=== PATIENT | female | born 1945 | race Caucasian/White ===

== ENCOUNTER 2017-04-19 16:06 | Emergency (ER) | payer BC ==
[~2017-04-19] VITALS: Ht 154.9 cm; Wt 49.1 kg
[2017-04-19] MEDS ORDERED: ALPRAZolam 0.25 MG TAB PO ONE (17:30)
[2017-04-19 17:40] LABS: MEAN CORPUSCULAR HEMOGLOBIN 28.4 pg (27.0-33.0); MEAN CORPUSCULAR HGB CONC 33.3 g/dl (32.0-36.5); MEAN CORPUSCULAR VOLUME 85.3 fl (80.0-96.0)
[2017-04-19 17:52] LABS: ANION GAP 9 MEQ/L (8-16); BLOOD UREA NITROGEN 11 MG/DL (7-18); CALCIUM LEVEL 9.2 MG/DL (8.8-10.2); CARBON DIOXIDE LEVEL 31 MEQ/L (21-32); CHLORIDE LEVEL 105 MEQ/L (98-107); CREATININE FOR GFR 0.84 MG/DL (0.55-1.02); GLOMERULAR FILTRATION RATE > 60.0 (>39); GLUCOSE, FASTING 105 MG/DL (83-110); PERCENT SATURATION 39.6 % (13.2-45.0); POTASSIUM SERUM 3.7 MEQ/L (3.5-5.1); SODIUM LEVEL 145 MEQ/L (136-145); TOTAL IRON BINDING CAPACITY 356 UG/DL (250-450)
--- NOTE | 2017-04-19 17:55 | REP ---
LEFT HAND COMPLETE: 04/19/2017. Clinical history: Contusion, trauma. Findings: There are no prior studies. The bones are severely demineralized. The distal radius and ulna without fracture or focal lesion. There are degenerative changes at the first CMC joint and articular margins of the multangular bones. The other carpal bones are grossly unremarkable. No carpal fractures visible. The other CMC joints show mild degenerative change. No evidence of a metacarpal fracture. Minimal degenerative changes at MTP and IP joints without erosion. No visible fractures. There is soft tissue swelling dorsal aspect of the hand and wrist. Impression: 1. Osteoporosis and degenerative changes with soft tissue swelling over the dorsal wrist and proximal hand. No definite fracture visible. Signed by Manny Ontiveros MD 04/20/2017 08:45 A
[2017-04-19 18:00] LABS: EOSINOPHILS 1 % (0-5); SCHISTOCYTES 1+
[2017-04-19 19:03] VITALS: BP 156/73
[2017-04-19] MEDS ORDERED: BACT800T5 PO (19:23)
[2017-04-19] MEDS ORDERED: BACTRIM 160MG/800MG DS TAB PO ONE (19:30)
== END 2017-04-19 19:56 | disposition home or self-care (01) ==
LOC: M ED 16:06
DX: N39.0 Urinary tract infection, site not specified (principal); B96.29 Other Escherichia coli [E. coli] as the cause of diseases classified elsewhere; F03.90 Unspecified dementia, unspecified severity, without behavioral disturbance, psychotic disturbance, mood disturbance, and anxiety; M81.0 Age-related osteoporosis without current pathological fracture; S60.222A Contusion of left hand, initial encounter; X58.XXXA Exposure to other specified factors, initial encounter; Y92.9 Unspecified place or not applicable; Y93.9 Activity, unspecified; Y99.8 Other external cause status; E78.00 Pure hypercholesterolemia, unspecified; K21.9 Gastro-esophageal reflux disease without esophagitis; Z86.73 Personal history of transient ischemic attack (TIA), and cerebral infarction without residual deficits; Z87.891 Personal history of nicotine dependence

== ENCOUNTER 2017-08-21 09:18 | Inpatient (IN) | payer BC ==
[~2017-08-21] VITALS: Ht 154.9 cm; Wt 45.5 kg
[~2017-08-21 09:18] MED LIST: BACT800T5 PO
[2017-08-21] MEDS ORDERED: VESI10TA2 (09:32)
[2017-08-21] MEDS ORDERED: FERR1TAB8 (09:32)
[2017-08-21] MEDS ORDERED: OMEP20CA3 PO (09:32)
[2017-08-21] MEDS ORDERED: ATOR1TAB19 PO (09:32)
[2017-08-21] MEDS ORDERED: ALPR0.25 PO (09:32)
[2017-08-21] MEDS ORDERED: FLUO20CA19 PO (09:32)
[2017-08-21] MEDS ORDERED: ASPI81TA85 PO (09:32)
[2017-08-21] MEDS ORDERED: VITA2000 PO (09:32)
[2017-08-21] MEDS ORDERED: ASCO25TA PO (09:32)
[2017-08-21] MEDS ORDERED: SENE8.6T PO (09:32)
--- NOTE | 2017-08-21 10:04 | REP ---
Brain CT without contrast: History: Altered mental status. No comparison imaging. Findings: Bone window settings show an intact bony calvarium. Visualized paranasal sinuses are clear. There is some vascular calcification in the distal internal carotid and distal vertebral arteries bilaterally. There is diffuse moderate cerebral atrophy and concordant ventricular enlargement. There is no evidence of intracranial hemorrhage. There are small vessel atherosclerotic low density areas in the periventricular white matter bilaterally. There is no evidence of infarction, extra-axial fluid collection, mass or midline shift. Impression: Diffuse moderate atrophy. Vascular calcification. No acute intracranial lesion seen. Signed by Cal Redman MD 08/21/2017 04:09 P
[2017-08-21 10:09] LABS: BASO % 0.2 % (0.0-1.0); EOS % 0.1 % (0.0-3.0); IMMATURE GRANULOCYTE % 0.3 % (0-0); LYMPH # 1.5 10^3/uL (1.5-4.5); LYMPH % 12.9 % (24.0-44.0); MEAN CORPUSCULAR HEMOGLOBIN 28.6 pg (27.0-33.0); MEAN CORPUSCULAR HGB CONC 32.6 g/dl (32.0-36.5); MEAN CORPUSCULAR VOLUME 87.7 fl (80.0-96.0); MONO # 0.9 10^3/uL (0.0-0.8); MONO % 7.7 % (0.0-5.0); NEUTROPHILS # 9.4 10^3/uL (1.8-7.7); NEUTROPHILS % 78.8 % (36.0-66.0); PLATELET COUNT, AUTOMATED 183 10^3/uL (150-450); RED CELL DISTRIBUTION WIDTH 14.5 % (11.5-14.5); WHITE BLOOD COUNT 11.9 10^3/uL (4.0-10.0)
[2017-08-21 10:39] LABS: ALBUMIN 3.2 GM/DL (3.2-5.2); ALBUMIN/GLOBULIN RATIO 0.74 (1.00-1.93); ALKALINE PHOSPHATASE 97 U/L (45-117); ALT/SGPT 318 U/L (12-78); ANION GAP 6 MEQ/L (8-16); AST/SGOT 292 U/L (7-37); BILIRUBIN,DIRECT 0.3 MG/DL (0.0-0.2); BILIRUBIN,TOTAL 0.9 MG/DL (0.2-1.0); BLOOD UREA NITROGEN 21 MG/DL (7-18); CALCIUM LEVEL 9.1 MG/DL (8.8-10.2); CARBON DIOXIDE LEVEL 30 MEQ/L (21-32); CHLORIDE LEVEL 103 MEQ/L (98-107); CREATININE FOR GFR 0.98 MG/DL (0.55-1.02); GLOMERULAR FILTRATION RATE 59.1 (>39); GLUCOSE, FASTING 131 MG/DL (83-110); POTASSIUM SERUM 3.3 MEQ/L (3.5-5.1); SODIUM LEVEL 139 MEQ/L (136-145); TOTAL PROTEIN 7.5 GM/DL (6.4-8.2)
[2017-08-21] MEDS ORDERED: ISOVUE-370 76% 100ML VIAL (Q9967) As Ordered ONE (10:59)
[2017-08-21] MEDS ORDERED: NS 1,000 ML IV SCH ×2 (11:45→14:00)
[2017-08-21] MEDS ORDERED: ALPRAZolam 0.25 MG TAB PO ONE (11:45)
--- NOTE | 2017-08-21 12:03 | REP ---
CT ABDOMEN AND PELVIS WITH IV CONTRAST: TECHNIQUE: Axial contrast enhanced images from the lung bases to the pubic symphysis using 100 mL Isovue 370 intravenous contrast material with multiplanar reformations. Patchy atelectasis or infiltrate is seen in each lung base. Liver, spleen, adrenals, and pancreas are unremarkable in appearance. A couple of tiny cysts are seen of the right kidney. There is a exophytic cyst in the upper pole of the left kidney measuring 2.5 cm in diameter. There is no hydronephrosis bilaterally. Moderate atherosclerotic calcifications are see of the abdominal aorta without aneurysm. There is no adenopathy. There is no free air or free fluid. There is no bowel wall thickening. No pelvic mass is seen. Urinary bladder is mildly distended and grossly unremarkable. I see no significant anterior abdominal wall defect. There are degenerative changes of the spine. There appears to be an old compression deformity of L2. IMPRESSION: Patchy bibasilar atelectasis/infiltrate. No acute abnormalities in the abdomen or pelvis. Signed by Jaime Rey MD 08/21/2017 05:57 P
[2017-08-21] MEDS ORDERED: ACETAMINOPHEN TAB 650MG DOSE (2X325MG) PO PRN (14:15)
[2017-08-21] MEDS ORDERED: ONDANSETRON 4MG/2ML VIAL (J2405) IV PRN (14:15)
[2017-08-21] MEDS ORDERED: OXYB10TA PO (14:49)
[2017-08-21] MEDS ORDERED: ASCO10003 PO (14:49)
[2017-08-21] MEDS ORDERED: FLUO40CA PO (14:49)
[2017-08-21] MEDS ORDERED: VITMTA PO (14:49)
[2017-08-21] MEDS ORDERED: RANI300T PO (14:49)
[2017-08-21] MEDS ORDERED: POTASSIUM CHLORIDE 10 MEQ SR TABLET PO ONE (15:00)
[2017-08-21] MEDS ORDERED: ALPRAZolam 0.25 MG TAB PO PRN (15:45)
[2017-08-21 15:50] VITALS: BP 174/80
--- NOTE | 2017-08-21 15:55 | REP ---
RIGHT UPPER QUADRANT ULTRASOUND: Real-time sonographic evaluation of the right upper quadrant performed. Gallbladder demonstrates no evidence of intraluminal sludge or calculi, wall thickening or pericholecystic fluid. There is no intrahepatic or extrahepatic biliary dilatation, the common bile duct measuring 3 mm in diameter. Liver and pancreas demonstrate homogeneous echotexture with no gross mass. Pancreas is not optimally seen due to overlying bowel gas. The right kidney demonstrates no hydronephrosis or nephrolithiasis with normal size at 9.1 cm in length. There is no free fluid seen in the right upper quadrant. IMPRESSION: Essentially negative right upper quadrant ultrasound. Signed by Jaime Rey MD 08/21/2017 05:59 P
[2017-08-21] MEDS ORDERED: POTASSIUM CHLORIDE 10% LIQ 20 MEQ/15 ML UDC PO ONE (16:00)
[2017-08-21] MEDS: FLUoxetine 20 MG CAP PO SCH (16:41)
[2017-08-21] MEDS: ENOXAPARIN 30 MG/0.3 ML SYR (J1650) SC SCH (16:41)
[2017-08-21] MEDS: ATORVASTATIN 10 MG TAB PO SCH (16:42)
[2017-08-21] MEDS: ASPIRIN 81 MG ENTERIC TAB PO SCH (16:42)
[2017-08-21] MEDS: OMEPRAZOLE 20 MG CAP PO SCH (16:42)
[2017-08-21] MEDS: ALPRAZolam 0.25 MG TAB PO SCH ×3 (16:42→22:10)
[2017-08-21] MEDS ORDERED: AZITHROMYCIN INJ 500 MG, VIAL MATE ADAPTER 1 EACH in D5W 250 ML IV SCH (17:00)
[2017-08-21] MEDS: LACTOBACILLUS ACIDOPHILUS CAP (BACID) PO SCH (17:41)
[2017-08-21] MEDS ORDERED: CEFTRIAXONE SOD 2 GM in APPROPRIATE DILUENT 1 EA IV SCH (18:00)
[2017-08-21] MEDS ORDERED: ROCEPHIN (cefTRIAXone) 100MG/ML SYR BULK (J0696) IV SCH (18:00)
--- NOTE | 2017-08-21 19:09 | HPEPDOC ---
General Date of Admission Aug 21, 2017 at 14:13 Attending Physician: ZULEIMA WILLIAM MD Chief Complaint The patient is a 72-year-old female admitted with a reason for visit of Altered Mental Status. Source: Family Exam Limitations: Physical impairment, Dementia, Hard of hearing, Garbled speech Timing/Duration: Day(s) (2) Severity: Moderate Associated Symptoms: Cough, Fever, Loss of appetite, Vomiting History of Present Illness Patient is 72-year-old female with a past medical history of Parkinson's and dementia. Patient is nonverbal and history was provided primarily by her and daughter. According patient's patient, was last seen at baseline on Monday. She was talking, responding to questions, playing cards, and being herself. However on Monday she spontaneously vomited her food, and started this decline, which ended up in her present state. She became very lethargic on Monday. And on Monday patient had poor appetite, developed a mild cough that has since resolved, and she began to have a decrease response to the family. He also had a fever on Monday. This morning patient woke up and she was moaning in pain. Her family attempted to ask her what is going on however she would not respond. She just laid there and moaned in pain. This prompted the family to bring her to the ED. Her family states that this is far from her baseline. She is normally very responsive, although with her advanced dementia she is unaware of what is going on around her but she is responsive and engaging with rest of her family. She currently lives with her and she needs assistance with all of her daily activities. Patient has a past history of UTI in the past. She also previously had a tick bite that was brought in by one of the family cats. Family denies any recent change in medication, denies any recent head trauma, denies any falls , denies any recent travels, denies tick bites, denies any recent infections, denies seizures. Denies sick contact. Denies diarrhea, denies any bleeding or bruising .The family does admit to weakness however patient does have baseline weakness from her Parkinson. Family confirms that pt has had both pneumonia vaccine, but she did not receive the flu vaccine this year. Home Medications Scheduled (Senexon-S 8.6-50 mg) 1 Tab Tab, 1 TAB PO DAILY, (Reported) Ascorbic Acid (Ascorbic Acid) 1,000 Mg Tab, 1,000 MG PO BID, (Reported) Aspirin (Aspir-81) 81 Mg Tab, 81 MG PO DAILY, (Reported) Atorvastatin Calcium (Atorvastatin Calcium) 10 Mg Tab, 10 MG PO DAILY, (Reported ) Fluoxetine Hcl (Fluoxetine HCl) 20 Mg Cap, 20 MG PO DAILY, (Reported) 60MG TOTAL DAILY Fluoxetine Hcl (Fluoxetine HCl) 40 Mg Cap, 40 MG PO DAILY, (Reported) 60MG TOTAL DAILY Multivitamins *[facility] STOCKED* (Thera M Plus *[facility] STOCKED*) 1 Tab Tab, 1 TAB PO DAILY, (Reported) Omeprazole (Omeprazole) 20 Mg Cap, 20 MG PO DAILY, (Reported) Oxybutynin Chloride (Oxybutynin Chloride ER) 10 Mg Tab, 10 MG PO QHS, (Reported) Ranitidine HCl (Ranitidine HCl) 300 Mg Tab, 1 TAB PO DAILY, (Reported) Scheduled PRN Alprazolam (Alprazolam) 0.25 Mg Tab, 0.25 MG PO TID PRN for ANXIETY, (Reported) Allergies Coded Allergies: No Known Allergies (Unverified , 04/19/17) Past Medical History Medical History Parkinson's, dementia Surgical History Hysterectomy Family History All 3 of her sisters had lung cancer by the 60s Social History * Smoker: former Smoker Alcohol: Denies Drugs: denies Recent Travel/Sick Contacts: Denies: Recent travel, Recent sick contacts Pets in the home: Cat(s) Review of Systems Other systems She was nonverbal and was not able to participate in review of systems Physical Examination General Exam: Positive: Mild Distress, Negative: Cooperative (patient was nonverbal. However she did look at me when her name was stated out loud) Eye Exam: Positive: PERRLA ENT Exam: Negative: Mucous membr. moist/pink (oral mucosa appears dry) Neck Exam: Negative: JVD, +2 carotid pulse wo bruit Chest Exam: Positive: Diminished, Negative: Rales, Rhonchi, Wheezing Heart Exam: Positive: Rate Normal, Normal S1, Normal S2, Negative: Bradycardic, Regular Rhythm, Irregular Rhythm Abdomen Exam: Positive: Soft, Tenderness, Negative: Hepatospenomegaly Extremity Exam: Positive: Normal pulses, Swelling, Negative: Edema, Tenderness Skin Exam: Positive: Nl turgor and temperature, Negative: Rash, Breakdown Neuro Exam: Positive: Normal Tone, Negative: Strength at 5/5 X4 ext (patient appears very weak) Vital Signs Vital Signs Date Time Temp Pulse Resp B/P (MAP) Pulse Ox O2 Delivery O2 Flow Rate FiO2 08/21/17 15:50 100.6 83 16 174/80 (111) 92 Room Air Laboratory Data Labs 24H Laboratory Tests 2 08/21/17 09:56: Bedside Glucose (Misc Panel) 123H 08/21/17 09:59: Immature Granulocyte % (Auto) 0.3H, White Blood Count 11.9H, Red Blood Count 4.65, Hemoglobin 13.3, Hematocrit 40.8, Mean Corpuscular Volume 87.7, Mean Corpuscular Hemoglobin 28.6, Mean Corpuscular Hemoglobin Concent 32.6, Red Cell Distribution Width 14.5, Platelet Count 183, Neutrophils (%) (Auto) 78.8H, Lymphocytes (%) (Auto) 12.9L, Monocytes (%) (Auto) 7.7H, Eosinophils (%) (Auto) 0.1, Basophils (%) (Auto) 0.2, Neutrophils # (Auto) 9.4H, Lymphocytes # (Auto) 1.5, Monocytes # (Auto) 0.9H, Eosinophils # (Auto) 0.0, Basophils # (Auto) 0.0, Immature Granulocyte # (Auto) 0.0, Nucleated Red Blood Cells % (auto) 0.0, Anion Gap 6L, Glomerular Filtration Rate 59.1, Calcium Level 9.1, Aspartate Amino Transf (AST/SGOT) 292H, Alanine Aminotransferase (ALT/SGPT) 318H, Alkaline Phosphatase 97, Total Bilirubin 0.9, Direct Bilirubin 0.3H, Ammonia 17 , Total Creatine Kinase 128, Creatine Kinase MB 2.0, Creatine Kinase MB Relative Index 1.56, Troponin I 0.02, Total Protein 7.5, Albumin 3.2, Albumin/ Globulin Ratio 0.74L, Lipase 71L, Thyroid Stimulating Hormone (TSH) 0.709 08/21/17 10:38: Urine Appearance HAZY, Urine Color YELLOW, Urine pH 5.0, Urine Specific [place] 1.024, Urine Protein 2+H, Urine Glucose (UA) NEGATIVE, Urine Ketones NEGATIVE, Urine Urobilinogen 4.0H, Urine Bilirubin NEGATIVE, Urine Leukocyte Esterase TRACEH, Urine Blood 2+H, Urine Nitrite NEGATIVE, Urine WBC (Auto) 13H, Urine RBC (Auto) 15H, Urine Hyaline Casts (Auto) 0, Urine Bacteria (Auto) 1+H, Urine Squamous Epithelial Cells 1, Urine Mucus (Auto) SMALL, Urine Sperm (Auto) 08/21/17 12:59: Lactic Acid Level 1.3 CBC/BMP Laboratory Tests 08/21/17 09:59 Red Blood Count 4.65, Mean Corpuscular Volume 87.7, Mean Corpuscular Hemoglobin 28.6, Mean Corpuscular Hemoglobin Concent 32.6, Red Cell Distribution Width 14.5 , Neutrophils (%) (Auto) 78.8 H, Lymphocytes (%) (Auto) 12.9 L, Monocytes (%) ( Auto) 7.7 H, Eosinophils (%) (Auto) 0.1, Basophils (%) (Auto) 0.2, Neutrophils # (Auto) 9.4 H, Lymphocytes # (Auto) 1.5, Monocytes # (Auto) 0.9 H, Eosinophils # (Auto) 0.0, Basophils # (Auto) 0.0 Microbiology Microbiology 08/21/17 Blood Culture, Received Pending 08/21/17 Blood Culture, Received Pending 08/21/17 MRSA Screen, Received Pending 08/21/17 Respiratory Virus Panel (PCR) (ERIKA), Received Pending Assessment/Plan Delirium: Secondary to infection -MRSA screen is pending, -Respiratory panel is pending -Blood cultures pending -Sputum culture pending Delirium, secondary to electrolyte imbalance: Unli -Glucose is 131 -Patient is hypokalemic, Replacement ordered -Ammonia 17 -Lipase is 71 -TSH is 0.709 -LFT within normal limits Delirium secondary to other disease process -DNA has been ordered -Hepatitis panel ordered -lyme disease screen ordered Crainal Injury -Diffuse moderate atrophy. Vascular calcification. No acute intracranial lesion seen. -MRI consider MRI UTI -Patient has been started on 2 g Rocephin Dementia -Continue home meds Parkinson -stable PT evaluation order Patient will be admitted to the inpatient unit under the care of Dr. Issa Plan / VTE VTE Prophylaxis Ordered?: Yes JULIAN GONZALEZ DO Aug 21, 2017 19:09
--- NOTE | 2017-08-21 19:59 | REP ---
Portable chest x-ray: Single view. History: Aspiration pneumonia. Findings: There is a fairly large dense infiltrate in the right base medially compatible with aspiration pneumonia. Remaining lung joel are clear. Heart is not enlarged. The aorta is calcific and tortuous. Pulmonary vasculature is not increased. Impression: Fairly large infiltrate in the right base medially consistent with right lower lobe pneumonia, possibly aspiration pneumonia. Signed by Cal Redman MD 08/21/2017 09:45 P
[2017-08-21] MEDS: ASCORBIC ACID 500 MG TAB PO SCH ×2 (21:00→22:10)
[2017-08-21] MEDS: oxyBUTYnin *DITROPAN XL* 5 MG TABCR PO SCH ×2 (21:00→22:10)
[2017-08-21 22:00] VITALS: BP 98/62
[2017-08-21] MEDS: metroNIDAZOLE 500 MG in APPROPRIATE DILUENT 1 EA IV SCH (23:14)
[2017-08-22] VITALS: BP 106/60
[2017-08-22 06:00] VITALS: BP 145/62
[2017-08-22] MEDS: metroNIDAZOLE 500 MG in APPROPRIATE DILUENT 1 EA IV SCH (06:24)
[2017-08-22 06:28] LABS: BASO % 0.3 % (0.0-1.0); EOS # 0.1 10^3/uL (0.0-0.50); EOS % 0.6 % (0.0-3.0); IMMATURE GRANULOCYTE % 0.5 % (0-0); LYMPH # 1.4 10^3/uL (1.5-4.5); LYMPH % 13.5 % (24.0-44.0); MEAN CORPUSCULAR HEMOGLOBIN 28.2 pg (27.0-33.0); MEAN CORPUSCULAR HGB CONC 32.2 g/dl (32.0-36.5); MEAN CORPUSCULAR VOLUME 87.6 fl (80.0-96.0); MONO # 0.8 10^3/uL (0.0-0.8); MONO % 7.6 % (0.0-5.0); NEUTROPHILS # 8.2 10^3/uL (1.8-7.7); NEUTROPHILS % 77.5 % (36.0-66.0); PLATELET COUNT, AUTOMATED 141 10^3/uL (150-450); RED CELL DISTRIBUTION WIDTH 14.5 % (11.5-14.5); WHITE BLOOD COUNT 10.6 10^3/uL (4.0-10.0)
[2017-08-22 06:50] LABS: ALBUMIN 2.5 GM/DL (3.2-5.2); ALBUMIN/GLOBULIN RATIO 0.71 (1.00-1.93); ALKALINE PHOSPHATASE 78 U/L (45-117); ALT/SGPT 207 U/L (12-78); ANION GAP 8 MEQ/L (8-16); AST/SGOT 148 U/L (7-37); BILIRUBIN,TOTAL 0.5 MG/DL (0.2-1.0); BLOOD UREA NITROGEN 18 MG/DL (7-18); CALCIUM LEVEL 8.1 MG/DL (8.8-10.2); CARBON DIOXIDE LEVEL 25 MEQ/L (21-32); CHLORIDE LEVEL 110 MEQ/L (98-107); CREATININE FOR GFR 0.77 MG/DL (0.55-1.02); GLOMERULAR FILTRATION RATE > 60.0 (>39); GLUCOSE, FASTING 94 MG/DL (83-110); POTASSIUM SERUM 3.4 MEQ/L (3.5-5.1); SODIUM LEVEL 143 MEQ/L (136-145)
[2017-08-22] MEDS: LACTOBACILLUS ACIDOPHILUS CAP (BACID) PO SCH ×2 (08:33→17:49)
[2017-08-22] MEDS: ASCORBIC ACID 500 MG TAB PO SCH ×2 (08:34→20:26)
[2017-08-22] MEDS: FLUoxetine 20 MG CAP PO SCH (08:34)
[2017-08-22] MEDS: OMEPRAZOLE 20 MG CAP PO SCH (08:34)
[2017-08-22] MEDS: ALPRAZolam 0.25 MG TAB PO SCH ×4 (08:34→20:25)
[2017-08-22] MEDS: SENOKOT S TAB PO SCH (08:34)
[2017-08-22] MEDS: ASPIRIN 81 MG ENTERIC TAB PO SCH (08:34)
[2017-08-22] MEDS: MULTIVITAMINS/MINERALS THERAP 1 TAB PO SCH (08:34)
[2017-08-22] MEDS: ATORVASTATIN 10 MG TAB PO SCH (08:34)
[2017-08-22] MEDS: LevoFLOXacin IV 500 MG in APPROPRIATE DILUENT 1 EA IV SCH (08:35)
[2017-08-22] MEDS: ENOXAPARIN 30 MG/0.3 ML SYR (J1650) SC SCH (08:35)
--- NOTE | 2017-08-22 08:38 | ECGEPIP ---
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
[2017-08-22] MEDS ORDERED: FLUoxetine 20 MG CAP PO SCH (09:00)
[2017-08-22] MEDS ORDERED: POTASSIUM CHLORIDE 10% LIQ 20 MEQ/15 ML UDC PO ONE (09:15)
[2017-08-22 09:19] LABS: MAGNESIUM LEVEL 1.9 MG/DL (1.8-2.4)
--- NOTE | 2017-08-22 09:27 | IPN ---
DATE: 08/22/2017 SUBJECTIVE: Patient tells me she feels all right this morning. She is able to say good morning and greets me as I enter the room. She is accompanied by her . The patient does not appear to be in any acute distress. The tells me the patient is doing significantly better. She is much more awake, talking and interactive, which she was unable to do yesterday. OBJECTIVE: Vital Signs: Temperature with T-max 100.6. Temperature 97.4. Pulse 74. Respiratory rate 18. Blood pressure 145/62. Oxygen saturation 94% on room air. General: She is a frail, elderly, female laying in bed. She does not appear to be in acute distress. HEENT: She has dry mucous membranes. No elevation of jugular venous pulse (JVP). Cranial nerves appear to be grossly intact, however, she does not cooperate with cranial nerve testing extensively. She is awake, alert. She is not oriented. Cardiovascular Exam: S1, S2, regular. Respiratory Exam: Actually quite clear. Diminished breath sounds at the bases bilaterally. Abdominal exam is benign. Extremities: No clubbing, cyanosis or edema. LABORATORY STUDIES: WBC 10.6 down from 11.9. Hemoglobin 11.1 from 13.3. Platelet count 141 down from 183. Chemistry panel with sodium 143, potassium 3.4, chloride 110, bicarbonate 25, BUN 18, creatinine 0.7. Lactic acid yesterday was 1.3. AST and ALT are down trending to 92 from 148 and from 318 to 207. Ammonia level is within normal limits. TSH is within normal limits. Lipase is unremarkable. IRINA is pending. Hepatitis panel and Lyme screen are both pending. MICROBIOLOGY: Blood cultures pending. Respiratory PCR panel is negative. Methicillin-resistant Staphylococcus aureus (MRSA) screen is negative. The patient had a chest x-ray yesterday that revealed fairly large infiltrate in the right base medially consistent with right lower lobe pneumonia, possibly aspiration pneumonia. The patient had a gallbladder ultrasound that was essentially a negative right upper quadrant ultrasound with no evidence of hepatic cirrhosis. She also had a CT scan of the abdomen and pelvis which revealed patchy bibasilar atelectasis/infiltrate. No acute abnormalities in the abdomen or pelvis. She did have a CT scan of the head which revealed diffuse moderate atrophy, vascular calcification, no acute intracranial lesion. ASSESSMENT AND PLAN: This is a 72-year-old female who presented with acute encephalopathy. PROBLEMS: 1. Metabolic encephalopathy likely related to aspiration pneumonia. The patient is not very functional at her baseline. Given her history, it is likely related to aspiration pneumonia. It does appear to be improving today. 2. Aspiration pneumonia. The patient was initially on ceftriaxone and azithromycin as well as metronidazole added. In order to simply her regimen, I will transition her to levofloxacin 500 mg IV daily. She does appear to be improving at this time. I have placed a speech therapy evaluation. This should adequately cover her for aspiration pneumonia. The patient is normally on Xanax as needed and at bedtime. I have placed a holding parameter - hold for sedation, at this time. 3. Hepatitis. The etiology remains unclear. It does appear to be improving. We do not have any old laboratory studies for her and I cannot determine the severity. As well, it appears to be a rather acute insult given that her LFTs returned to normal and she does not have any radiographic findings of cirrhosis. She does not have any abdominal pain. IRINA is currently pending as well as a hepatitis panel and a Lyme screen. 4. Hypokalemia. Will provide her with supplementation as well as check a magnesium level. 5. Anemia, asymptomatic. Likely dilutional drop as all of her dropped with fluids. 6. Overactive bladder. Continue with oxybutynin. 7. Dyslipidemia. She is on statin and aspirin. 8. Mood disorder. She is on Prozac. 9. Gastroesophageal reflux disease. She is on omeprazole. DISPOSITION: Will continue with antibiotics. At this time, she does appear to be improving. I suspect she may be more appropriate to participate with physical therapy and in the coming days will improve as she is adequately treated. She is improving at this time.
[2017-08-22 09:52] LABS: INR 1.17
[2017-08-22 14:00] VITALS: BP 134/60
[2017-08-22] MEDS: oxyBUTYnin *DITROPAN XL* 5 MG TABCR PO SCH (20:26)
[2017-08-22 22:00] VITALS: BP 139/66
[2017-08-23 06:00] VITALS: BP 151/72
[2017-08-23 06:22] LABS: BASO % 0.2 % (0.0-1.0); EOS # 0.1 10^3/uL (0.0-0.50); EOS % 1.1 % (0.0-3.0); IMMATURE GRANULOCYTE % 0.4 % (0-0); LYMPH # 1.8 10^3/uL (1.5-4.5); LYMPH % 19.3 % (24.0-44.0); MEAN CORPUSCULAR HEMOGLOBIN 28.1 pg (27.0-33.0); MEAN CORPUSCULAR HGB CONC 33.3 g/dl (32.0-36.5); MEAN CORPUSCULAR VOLUME 84.3 fl (80.0-96.0); MONO # 0.8 10^3/uL (0.0-0.8); MONO % 8.8 % (0.0-5.0); NEUTROPHILS # 6.6 10^3/uL (1.8-7.7); NEUTROPHILS % 70.2 % (36.0-66.0); PLATELET COUNT, AUTOMATED 166 10^3/uL (150-450); RED CELL DISTRIBUTION WIDTH 14.3 % (11.5-14.5); WHITE BLOOD COUNT 9.4 10^3/uL (4.0-10.0)
[2017-08-23 06:45] LABS: ALBUMIN 2.5 GM/DL (3.2-5.2); ALBUMIN/GLOBULIN RATIO 0.66 (1.00-1.93); ALKALINE PHOSPHATASE 84 U/L (45-117); ALT/SGPT 149 U/L (12-78); ANION GAP 8 MEQ/L (8-16); AST/SGOT 81 U/L (7-37); BILIRUBIN,TOTAL 0.6 MG/DL (0.2-1.0); BLOOD UREA NITROGEN 13 MG/DL (7-18); CALCIUM LEVEL 8.1 MG/DL (8.8-10.2); CARBON DIOXIDE LEVEL 24 MEQ/L (21-32); CHLORIDE LEVEL 107 MEQ/L (98-107); CREATININE FOR GFR 0.68 MG/DL (0.55-1.02); GLOMERULAR FILTRATION RATE > 60.0 (>39); GLUCOSE, FASTING 104 MG/DL (83-110); POTASSIUM SERUM 3.7 MEQ/L (3.5-5.1); SODIUM LEVEL 139 MEQ/L (136-145); TOTAL PROTEIN 6.3 GM/DL (6.4-8.2)
[2017-08-23] MEDS ORDERED: INFLUENZA VIRUS VACCINE HIGH DOSE 0.5 ML SYRINGE (90662) IM ONE (09:00)
[2017-08-23] MEDS: ASPIRIN 81 MG ENTERIC TAB PO SCH (09:41)
[2017-08-23] MEDS: MULTIVITAMINS/MINERALS THERAP 1 TAB PO SCH (09:41)
[2017-08-23] MEDS: ALPRAZolam 0.25 MG TAB PO SCH ×4 (09:41→21:05)
[2017-08-23] MEDS: LACTOBACILLUS ACIDOPHILUS CAP (BACID) PO SCH ×2 (09:41→18:09)
[2017-08-23] MEDS: ATORVASTATIN 10 MG TAB PO SCH (09:43)
[2017-08-23] MEDS: SENOKOT S TAB PO SCH (09:43)
[2017-08-23] MEDS: OMEPRAZOLE 20 MG CAP PO SCH (09:43)
[2017-08-23] MEDS: ASCORBIC ACID 500 MG TAB PO SCH ×2 (09:44→21:04)
[2017-08-23] MEDS: ENOXAPARIN 30 MG/0.3 ML SYR (J1650) SC SCH (09:44)
[2017-08-23] MEDS: FLUoxetine 20 MG CAP PO SCH (09:44)
[2017-08-23] MEDS: LevoFLOXacin IV 500 MG in APPROPRIATE DILUENT 1 EA IV SCH (09:50)
--- NOTE | 2017-08-23 13:05 | IPNPDOC ---
Text Note Date of Service The patient was seen on 08/23/17. NOTE Subjective: Patient is a 72 year old female with a PMHx of Parkinson's, Dementia , DLP, Depression, Overactive bladder, GERD who presented to the ER after she had a change in her mental status. She was noted to have a vomiting episode and was began to have a decline from that point. Patient was admitted for an aspiration pneumonia and started on antibiotics. Patient was seen and examined at the bedside. Her caregiver was present at the bedside. I was able to have the patient respond to questions; however she was unable to verbalize anything comprehendible. She remains awake and alert. Although caregiver has noted that she is still not as energetic as before. Speech therapy has recommended adjusting her diet again. Objective: Vitals (See below) General: Lying in bed, no acute distress, comfortable, Awake + Alert HEENT: NC, AT CVS: RRR, +S1S2 Lungs: Poor inspiratory effort, -w/r/r Abdomen: Soft, ND, NT Extremities: - Edema, - Calf tenderness Assessment and plan: Acute Metabolic Encephalopathy - likely 2/2 aspiration pneumonia - Noted to have worsening of her mental status after she had a vomiting episode at home - She does not appear to be at baseline level of functioning at this time - CT Head 08/21: Diffuse moderate atrophy, vascular calcification, no acute intracranial lesion seen - Will c/w treatment of pneumonia until she improves - Will start PT / OT in next few days Aspiration pneumonia - likely a result of progressive dementia - Remains afebrile, hemodynamically stable - WBC improving, No lactic acidosis - Blood cultures 08/21: Negative at 24 hours, Respiratory panel: negative; MRSA screen: negative - CXR 08/21: fairly large infiltrate at R base medially; RLL pneumonia - Abdominal US 08/21: Essentially negative right upper quadrant - CT ab/pel 08/21: Patchy bibasilar atelectasis/infiltrate, no acute abnormalities - c/w Levofloxacin (Day #2) Aspiration - c/w Speech therapy - c/w modified diet as per recommendations Elevated AST/ALT - hepatitis panel negative - Imaging noted above; negative - continues to improve - IRINA pending s/p Hypokalemia Normocytic anemia - Mild drop, likely 2/2 IV fluids - will continue to monitor Overactive bladder - c/w Oxybutynin DLP - c/w ASA and Atorvastatin Depression - c/w Fluoxetine GERD - c/w Omeprazole DVT prophylaxis - c/w Lovenox VS,Fishbone, I+O VS, Fishbone, I+O Laboratory Tests 08/23/17 05:35 Calcium Level 8.1 L, Aspartate Amino Transf (AST/SGOT) 81 H, Alanine Aminotransferase (ALT/SGPT) 149 H, Alkaline Phosphatase 84, Total Bilirubin 0.6 , Total Protein 6.3 L, Albumin 2.5 L 08/23/17 05:36 Red Blood Count 4.02, Mean Corpuscular Volume 84.3, Mean Corpuscular Hemoglobin 28.1, Mean Corpuscular Hemoglobin Concent 33.3, Red Cell Distribution Width 14.3 , Neutrophils (%) (Auto) 70.2 H, Lymphocytes (%) (Auto) 19.3 L, Monocytes (%) ( Auto) 8.8 H, Eosinophils (%) (Auto) 1.1, Basophils (%) (Auto) 0.2, Neutrophils # (Auto) 6.6, Lymphocytes # (Auto) 1.8, Monocytes # (Auto) 0.8, Eosinophils # ( Auto) 0.1, Basophils # (Auto) 0.0 Vital Signs Date Time Temp Pulse Resp B/P (MAP) Pulse Ox O2 Delivery O2 Flow Rate FiO2 08/23/17 06:00 98.6 88 17 151/72 (98) 93 Room Air I&O- Last 24 Hours up to 6 AM 08/23/17 06:00 Intake Total 860 ml Output Total 0 ml Balance 860 ml HANANE GONZALEZ MD Aug 23, 2017 13:05
[2017-08-23 14:00] VITALS: BP 138/80
[2017-08-23] MEDS: oxyBUTYnin *DITROPAN XL* 5 MG TABCR PO SCH (21:06)
[2017-08-23 22:00] VITALS: BP 157/75
[2017-08-24 00:07] LABS: Lyme Disease IgG/IgM Antibodie <0.91 ISR (0.00-0.90); Lyme Disease IgM Ab Quantitati <0.80 index (0.00-0.79)
[2017-08-24 06:00] VITALS: BP 156/63
[2017-08-24 06:55] LABS: BASO % 0.3 % (0.0-1.0); EOS # 0.1 10^3/uL (0.0-0.50); EOS % 1.4 % (0.0-3.0); IMMATURE GRANULOCYTE % 0.4 % (0-0); LYMPH # 1.6 10^3/uL (1.5-4.5); LYMPH % 20.5 % (24.0-44.0); MEAN CORPUSCULAR HEMOGLOBIN 28.4 pg (27.0-33.0); MEAN CORPUSCULAR HGB CONC 33.1 g/dl (32.0-36.5); MEAN CORPUSCULAR VOLUME 85.7 fl (80.0-96.0); MONO # 0.7 10^3/uL (0.0-0.8); MONO % 8.8 % (0.0-5.0); NEUTROPHILS # 5.3 10^3/uL (1.8-7.7); NEUTROPHILS % 68.6 % (36.0-66.0); PLATELET COUNT, AUTOMATED 189 10^3/uL (150-450); RED CELL DISTRIBUTION WIDTH 14.1 % (11.5-14.5); WHITE BLOOD COUNT 7.7 10^3/uL (4.0-10.0)
[2017-08-24 07:09] LABS: ALBUMIN 2.5 GM/DL (3.2-5.2); ALBUMIN/GLOBULIN RATIO 0.74 (1.00-1.93); ALKALINE PHOSPHATASE 79 U/L (45-117); ALT/SGPT 116 U/L (12-78); ANION GAP 8 MEQ/L (8-16); AST/SGOT 59 U/L (7-37); BILIRUBIN,TOTAL 0.6 MG/DL (0.2-1.0); BLOOD UREA NITROGEN 14 MG/DL (7-18); CARBON DIOXIDE LEVEL 26 MEQ/L (21-32); CHLORIDE LEVEL 105 MEQ/L (98-107); CREATININE FOR GFR 0.74 MG/DL (0.55-1.02); GLOMERULAR FILTRATION RATE > 60.0 (>39); GLUCOSE, FASTING 90 MG/DL (83-110); POTASSIUM SERUM 3.6 MEQ/L (3.5-5.1); SODIUM LEVEL 139 MEQ/L (136-145); TOTAL PROTEIN 5.9 GM/DL (6.4-8.2)
[2017-08-24] MEDS: LevoFLOXacin IV 500 MG in APPROPRIATE DILUENT 1 EA IV SCH (09:39)
[2017-08-24] MEDS: LACTOBACILLUS ACIDOPHILUS CAP (BACID) PO SCH ×2 (09:39→18:13)
[2017-08-24] MEDS: ALPRAZolam 0.25 MG TAB PO SCH ×4 (09:39→21:17)
[2017-08-24] MEDS: MULTIVITAMINS/MINERALS THERAP 1 TAB PO SCH (09:40)
[2017-08-24] MEDS: ASPIRIN 81 MG ENTERIC TAB PO SCH (09:40)
[2017-08-24] MEDS: ENOXAPARIN 30 MG/0.3 ML SYR (J1650) SC SCH (09:40)
[2017-08-24] MEDS: SENOKOT S TAB PO SCH (09:40)
[2017-08-24] MEDS: OMEPRAZOLE 20 MG CAP PO SCH (09:40)
[2017-08-24] MEDS: ATORVASTATIN 10 MG TAB PO SCH (09:40)
[2017-08-24] MEDS: ASCORBIC ACID 500 MG TAB PO SCH ×2 (09:40→21:17)
[2017-08-24] MEDS: FLUoxetine 20 MG CAP PO SCH (09:41)
--- NOTE | 2017-08-24 11:44 | IPNPDOC ---
Text Note Date of Service The patient was seen on 08/24/17. NOTE Subjective: Patient is a 72 year old female with a PMHx of Parkinson's, Dementia , DLP, Depression, Overactive bladder, GERD who presented to the ER after she had a change in her mental status. She was noted to have a vomiting episode and was began to have a decline from that point. Patient was admitted for an aspiration pneumonia and started on antibiotics. Patient was seen and examined at the bedside. She is more awake and alert. Is able to understand questions and can answer very softly. Another caregiver is present at the bedside. She notes that this is her baseline level of function. Physical therapy will start today. Objective: Vitals (See below) General: Lying in bed, no acute distress, comfortable, Awake + Alert HEENT: NC, AT CVS: RRR, +S1S2 Lungs: Poor inspiratory effort, -w/r/r Abdomen: Soft, ND, NT Extremities: - Edema, - Calf tenderness Assessment and plan: s/p Acute Metabolic Encephalopathy - likely 2/2 aspiration pneumonia - Appears to be at baseline level of functioning as per caregiver in room - CT Head 08/21: Diffuse moderate atrophy, vascular calcification, no acute intracranial lesion seen - c/w treatment of pneumonia - Will start PT today and evaluate progression; has 24 hour care at home Aspiration pneumonia - likely a result of progressive dementia - Remains afebrile, hemodynamically stable - WBC count continues to improve, No lactic acidosis - Blood cultures 08/21: Negative at 24 hours, Respiratory panel: negative; MRSA screen: negative - CXR 08/21: fairly large infiltrate at R base medially; RLL pneumonia - Abdominal US 08/21: Essentially negative right upper quadrant - CT ab/pel 08/21: Patchy bibasilar atelectasis/infiltrate, no acute abnormalities - c/w Levofloxacin (Day #3) Aspiration - c/w Speech therapy - c/w modified diet as per recommendations Elevated AST/ALT - Hepatitis panel negative; IRINA negative; Lyme negative - Imaging noted above; negative - continues to trend down s/p Hypokalemia Normocytic anemia - Mild drop, likely 2/2 IV fluids - will continue to monitor Overactive bladder - c/w Oxybutynin DLP - c/w ASA and Atorvastatin Depression - c/w Fluoxetine GERD - c/w Omeprazole DVT prophylaxis - c/w Lovenox VS,Fishbone, I+O VS, Fishbone, I+O Laboratory Tests 08/24/17 05:35 Red Blood Count 3.91 L, Mean Corpuscular Volume 85.7, Mean Corpuscular Hemoglobin 28.4, Mean Corpuscular Hemoglobin Concent 33.1, Red Cell Distribution Width 14.1, Neutrophils (%) (Auto) 68.6 H, Lymphocytes (%) (Auto) 20.5 L, Monocytes (%) (Auto) 8.8 H, Eosinophils (%) (Auto) 1.4, Basophils (%) ( Auto) 0.3, Neutrophils # (Auto) 5.3, Lymphocytes # (Auto) 1.6, Monocytes # (Auto ) 0.7, Eosinophils # (Auto) 0.1, Basophils # (Auto) 0.0, Calcium Level 8.0 L, Aspartate Amino Transf (AST/SGOT) 59 H, Alanine Aminotransferase (ALT/SGPT) 116 H, Alkaline Phosphatase 79, Total Bilirubin 0.6, Total Protein 5.9 L, Albumin 2.5 L Vital Signs Date Time Temp Pulse Resp B/P (MAP) Pulse Ox O2 Delivery O2 Flow Rate FiO2 08/24/17 06:00 98.8 79 20 156/63 (94) 93 08/23/17 14:00 Room Air I&O- Last 24 Hours up to 6 AM 08/24/17 06:00 Intake Total 960 ml Balance 960 ml HANANE GONZALEZ MD Aug 24, 2017 11:43
[2017-08-24 14:00] VITALS: BP 124/58
[2017-08-24] MEDS: oxyBUTYnin *DITROPAN XL* 5 MG TABCR PO SCH (21:16)
[2017-08-24 22:00] VITALS: BP 132/67
[2017-08-25 06:00] VITALS: BP 156/77
[2017-08-25 07:26] LABS: BASO % 0.3 % (0.0-1.0); EOS # 0.1 10^3/uL (0.0-0.50); EOS % 1.2 % (0.0-3.0); IMMATURE GRANULOCYTE % 0.8 % (0-0); LYMPH # 1.7 10^3/uL (1.5-4.5); LYMPH % 17.2 % (24.0-44.0); MEAN CORPUSCULAR HEMOGLOBIN 28.2 pg (27.0-33.0); MEAN CORPUSCULAR HGB CONC 33.3 g/dl (32.0-36.5); MEAN CORPUSCULAR VOLUME 84.7 fl (80.0-96.0); MONO % 9.9 % (0.0-5.0); NEUTROPHILS # 7.1 10^3/uL (1.8-7.7); NEUTROPHILS % 70.6 % (36.0-66.0); PLATELET COUNT, AUTOMATED 225 10^3/uL (150-450); RED CELL DISTRIBUTION WIDTH 13.8 % (11.5-14.5); WHITE BLOOD COUNT 10.1 10^3/uL (4.0-10.0)
[2017-08-25 07:51] LABS: ALBUMIN 2.7 GM/DL (3.2-5.2); ALBUMIN/GLOBULIN RATIO 0.73 (1.00-1.93); ALKALINE PHOSPHATASE 84 U/L (45-117); ALT/SGPT 99 U/L (12-78); ANION GAP 7 MEQ/L (8-16); AST/SGOT 45 U/L (7-37); BILIRUBIN,TOTAL 0.6 MG/DL (0.2-1.0); BLOOD UREA NITROGEN 12 MG/DL (7-18); CALCIUM LEVEL 8.5 MG/DL (8.8-10.2); CARBON DIOXIDE LEVEL 28 MEQ/L (21-32); CHLORIDE LEVEL 103 MEQ/L (98-107); CREATININE FOR GFR 0.75 MG/DL (0.55-1.02); GLOMERULAR FILTRATION RATE > 60.0 (>39); GLUCOSE, FASTING 98 MG/DL (83-110); POTASSIUM SERUM 3.9 MEQ/L (3.5-5.1); SODIUM LEVEL 138 MEQ/L (136-145); TOTAL PROTEIN 6.4 GM/DL (6.4-8.2)
[2017-08-25] MEDS ORDERED: LEVA750T7 PO (07:56)
[2017-08-25] MEDS: FLUoxetine 20 MG CAP PO SCH (08:13)
[2017-08-25] MEDS: MULTIVITAMINS/MINERALS THERAP 1 TAB PO SCH (08:13)
[2017-08-25] MEDS: ATORVASTATIN 10 MG TAB PO SCH (08:13)
[2017-08-25] MEDS: ASPIRIN 81 MG ENTERIC TAB PO SCH (08:13)
[2017-08-25] MEDS: ASCORBIC ACID 500 MG TAB PO SCH (08:13)
[2017-08-25] MEDS: ALPRAZolam 0.25 MG TAB PO SCH (08:13)
[2017-08-25] MEDS: LACTOBACILLUS ACIDOPHILUS CAP (BACID) PO SCH (08:13)
[2017-08-25] MEDS: OMEPRAZOLE 20 MG CAP PO SCH (08:13)
[2017-08-25] MEDS: LevoFLOXacin IV 500 MG in APPROPRIATE DILUENT 1 EA IV SCH (08:14)
[2017-08-25] MEDS: ENOXAPARIN 30 MG/0.3 ML SYR (J1650) SC SCH ×2 (08:14→08:24)
[2017-08-25] MEDS: SENOKOT S TAB PO SCH (08:14)
--- NOTE | 2017-08-25 15:47 | DSES ---
DATE OF ADMISSION: 08/21/2017 DATE OF DISCHARGE: 08/25/2017 ATTENDING PHYSICIAN: Sabrina Issa MD, Tobi Wang MD DICTATED BY: Sabrina Issa MD PRIMARY CARE PHYSICIAN: Jaren Jones MD REFERRING PHYSICIAN: None. CONSULTING PHYSICIAN: None. CONDITION ON DISCHARGE: Stable. FINAL DIAGNOSIS: Aspiration pneumonia. PROCEDURES: None. HISTORY OF PRESENT ILLNESS: The patient is a 72-year-old female with a past medical history of progressive dementia, dyslipidemia, depression, overactive bladder, gastroesophageal reflux disease (GERD), who presented to the emergency room after she had a change in her mental status. She was noted to have vomiting episode and began to have a decline in her mental status from that point. The patient was admitted for aspiration pneumonia and started on antibiotics. HOSPITALIZATION COURSE: 1. Status post acute metabolic encephalopathy, likely secondary to aspiration pneumonia. Appears to have baseline level of functioning, as per caregiver in the room. CT of the head on 08/21/2017 revealed diffuse moderate atrophy, vascular calcification and no acute intracranial lesions noted. The patient was continued with treatment for pneumonia. The patient has been continued with physical therapy (PT) and has been cleared for discharge home with 24 hour care. 2. Aspiration pneumonia, likely as a result of progressive dementia. Remains afebrile, hemodynamically stable. WBC count has improved throughout the hospital course. No lactic acidosis. Blood cultures on 08/21/2017 have been negative after 72 hours. Respiratory panel has been negative. Methicillin resistant Staphylococcus aureus (MRSA) screen negative. The patient's chest x-ray on 08/21/2017 revealed fairly large infiltrate of the right lower lung base medially, consistent with a right lower lobe pneumonia. Abdominal ultrasound on 08/21/2017 is essentially negative for right upper quadrant. CT of the abdomen and pelvis on 08/21 revealed patchy bibasilar atelectasis/infiltrate. No acute abnormalities. The patient was put on Levaquin, today elliott day #4 upon discharge, she will continue antibiotics upon outpatient for completion of antibiotic course. 3. Aspiration. She has been working with speech therapy and they have recommended modified diet, which will continue as an outpatient. 4. Elevated AST and ALT. Hepatitis panel has been negative. [place] is negative. Lyme disease is negative. Imaging as noted above, negative. AST and ALT have continued to trend down. 5. Status post hyperkalemia. 6. Thrombocytopenia, mild. Likely secondary to IV fluids. Has remained stable since that point. 7. Overactive bladder. Continue oxybutynin. 8. Dyslipidemia. Continue with aspirin and atorvastatin. 9. Depression. Continue with fluoxetine. 10. Gastroesophageal reflux disease (GERD). Continue with omeprazole. 11. Deep vein thrombosis (DVT) prophylaxis. Continue with Lovenox. DISCHARGE MEDICATIONS: The patient will be discharged home with the following medication list: - ciprofloxacin 750 mg by mouth daily to be taken for the remainder of the antibiotic course - alprazolam 0.25 mg by mouth three times a day for anxiety - ascorbic acid 1000 mg by mouth twice a day - aspirin 81 mg by mouth daily - atorvastatin 10 mg by mouth daily - fluoxetine 20 mg by mouth daily - fluoxetine 40 mg by mouth daily - multivitamin one tablet by mouth daily - omeprazole 20 mg by mouth daily - oxybutynin 10 mg by mouth at night - ranitidine one tablet by mouth daily - cinoxacin S one tablet by mouth daily DISCHARGE INSTRUCTIONS: The patient has been advised to followup with primary care provider, who is Dr. Jaren Jones within the next 7 days. She has been advised to remain compliant with treatment plan and medications and return to the emergency room if she experiences any problems. Time spent on discharge: Greater than 35 minutes. MTDD
== END 2017-08-25 11:12 | disposition home health service (06) | DRG 137 ==
LOC: M ED 09:18 → M ED INP 14:13 → CMPBEDREQ 14:47 → M MSPAV 15:36
PROVIDERS: ADMIT General Practice; ATTEND Internal Medicine
DX: J69.0 Pneumonitis due to inhalation of food and vomit (principal); G93.41 Metabolic encephalopathy; G31.83 Neurocognitive disorder with Lewy bodies; N32.81 Overactive bladder; F02.80 Dementia in other diseases classified elsewhere, unspecified severity, without behavioral disturbance, psychotic disturbance, mood disturbance, and anxiety; K75.9 Inflammatory liver disease, unspecified; D64.9 Anemia, unspecified; E87.6 Hypokalemia; E78.5 Hyperlipidemia, unspecified; F39 Unspecified mood [affective] disorder; K21.9 Gastro-esophageal reflux disease without esophagitis; Z87.891 Personal history of nicotine dependence; Z79.82 Long term (current) use of aspirin; Z79.899 Other long term (current) drug therapy